=== PATIENT | male | born 1970 | race Caucasian/White ===

== ENCOUNTER 2017-07-12 13:27 | Emergency (ER) | payer MEDICAID ==
[2017-07-12] MEDS ORDERED: Lidocaine 5% Patch TD STA (17:02)
[2017-07-12] MEDS ORDERED: Lidocaine 5% Patch TD ONE (17:17)
--- NOTE | 2017-07-12 17:28 | C.PDOC ---
History Of Present Illness 46yo male, presents to ER with complaints of left lateral chest pain, PRESENT ONLY with change in position or deep inspiration. Patient states he HAS had the chest discomfort for 1 year but it worsened last night, prompting his ER visit. He took Tylenol with no relief of pain. he denies [place] fever, chills, shortness of breath, weakness, and offers no other medical complaints. NO PRIOR MD NATALIE FOR SAME PMD: None Time Seen by Provider: 07/12/17 15:51 Chief Complaint (Nursing): GI Problem History Per: Patient History/Exam Limitations: no limitations Onset/Duration Of Symptoms: Intermittent Episodes, Persistent Current Symptoms Are (Timing): Still Present Past Medical History Reviewed: Historical Data, Nursing Documentation, Vital Signs Vital Signs: Last Vital Signs Temp 98.4 F 07/12/17 14:11 Pulse 84 07/12/17 14:11 Resp 18 07/12/17 14:11 BP 105/69 07/12/17 14:11 Pulse Ox 95 07/12/17 18:14 - Medical History PMH: Arthritis, Asthma, Rheumatoid Arthritis Denies: Chronic Kidney Disease Surgical History: Appendectomy Family History: States: No Known Family Hx, Unknown Family Hx - Social History Hx Tobacco Use: Yes Hx Alcohol Use: No (DENIES) Hx Substance Use: No (DENIES) - Immunization History Hx Tetanus Toxoid Vaccination: Yes Hx Influenza Vaccination: No Hx Pneumococcal Vaccination: No Review Of Systems Except As Marked, All Systems Reviewed And Found Negative. Constitutional: Negative for: Fever, Chills Cardiovascular: Positive for: Chest Pain Respiratory: Negative for: Shortness of Breath Neurological: Negative for: Weakness Physical Exam - Physical Exam Appears: Non-toxic, No Acute Distress Skin: Normal Color, Warm, Dry Head: Atraumatic, Normacephalic Eye(s): bilateral: Normal Inspection Oral Mucosa: Moist Neck: Normal ROM, Supple Chest: Symmetrical, Tenderness (muscle spasm left lateral chest ) Cardiovascular: Rhythm Regular Respiratory: Normal Breath Sounds, No Wheezing Back: Normal Inspection Extremity: Normal ROM, No Deformity Neurological/Psych: Oriented x3 ED Course And Treatment O2 Sat by Pulse Oximetry: 95 (RA) Pulse Ox Interpretation: Normal Reevaluation Time: 18:13 Reassessment Condition: Improved (PT CO SPASM IN L FOREARM. EXAM: SOFT NONDISTENDED. PT BECAME BELLIGERENT AND VERBALLY ABUSIVE UPON BEING ADVISED WILL NOT BE RECEIVING NARCOTIC MEDICATION. DC) Medical Decision Making Medical Decision Making: Plan: -- Tylenol 650 mg PO -- Toradol 60mg IM -- Lidoderm patch -- Valium 5mg PO Disposition Counseled Patient/Family Regarding: Diagnosis, Need For Followup - Disposition Disposition: HOME/ ROUTINE Disposition Time: 18:14 Condition: IMPROVED Instructions: Chronic Pain Forms: [employer] ([place]) - Clinical Impression Clinical Impression: Chronic pain, Drug-seeking behavior - Scribe Statement The provider has reviewed the documentation as recorded by the Scribe (Yamile Salvador) Provider Attestation: All medical record entries made by the Scribe were at my direction and personally dictated by me. I have reviewed the chart and agree that the record accurately reflects my personal performance of the history, physical exam, medical decision making, and the department course for this patient. I have also personally directed, reviewed, and agree with the discharge instructions and disposition.
[2017-07-12 18:54] VITALS: BP 155/86; PULSE 78; RESP 20; TEMP 97; O2SAT 98
== END 2017-07-12 18:00 | disposition home or self-care (01) ==
LOC: C.ER 13:27
DX: G89.29 Other chronic pain (principal); Z76.5 Malingerer [conscious simulation]; Z72.0 Tobacco use; M06.9 Rheumatoid arthritis, unspecified
CPT/HCPCS: 96372; 99283; J1885

== ENCOUNTER 2018-05-02 17:15 | Inpatient (IN) | payer MEDICAID ==
[2018-05-02 17:55] LABS: BASO # 0.1 K/uL (0.0-0.2); BASO % 1.4 % (0.0-2.0); EOS % 0.4 % (0.0-4.0); HEMOGLOBIN 13.6 g/dL (12.0-18.0); LYMPH # 1.8 K/uL (1.0-4.3); LYMPH % 21.2 % (20.0-40.0); MEAN CELL VOLUME 91.3 fL (80.0-94.0); MEAN CORPUSCULAR HEMOGLOBIN 29.5 pg (27.0-31.0); MEAN CORPUSCULAR HGB CONC 32.3 g/dL (33.0-37.0); MEAN PLATELET VOLUME 8.5 fL (7.2-11.7); MONO # 0.4 K/uL (0.0-0.8); MONO % 4.9 % (0.0-10.0); NEUT # 6.1 K/uL (1.8-7.0); NEUT % 72.1 % (50.0-75.0); NRBC % 0.1 % (0.0-2.0); RBC 4.62 Mil/uL (4.40-5.90); RED CELL DISTRIBUTION WIDTH 14.6 % (11.5-14.5); WHITE BLOOD COUNT 8.5 K/uL (4.8-10.8)
--- NOTE | 2018-05-02 18:06 | C.PDOC ---
History Of Present Illness 47 y/o male presents to the ED, referred by PMD Mateus Dorman for evaluation. Patient complains of worsening SOB for 1 week. He also reports having QUINTANA for 4 months, ever since I reached 300 lbs. Patient has hx of asthma, and reports no improvement with nebulizer treatments at home. He also complains of a subjective fever. Patient has h/o intermittent chest pain for 1 year, with previous ED eval in 2018. Of note patient is a poor historian. PMD DR DORMAN <Rosita Keyes - Last Filed: 05/02/18 18:51> History Per: Patient History/Exam Limitations: no limitations Onset/Duration Of Symptoms: Days Current Symptoms Are (Timing): Still Present <Rosita Keyes - Last Filed: 05/02/18 18:51> <Mery Elmore - Last Filed: 05/02/18 20:16> Time Seen by Provider: 05/02/18 17:42 Chief Complaint (Nursing): Shortness Of Breath Past Medical History Reviewed: Historical Data, Nursing Documentation, Vital Signs Vital Signs: Last Vital Signs Temp Pulse 101 H 05/02/18 17:30 Resp 21 05/02/18 17:30 BP 114/71 05/02/18 17:30 Pulse Ox 99 05/02/18 17:30 - Medical History PMH: Arthritis, Asthma, Rheumatoid Arthritis Denies: Chronic Kidney Disease Surgical History: Appendectomy Family History: States: Unknown Family Hx - Social History Hx Tobacco Use: Yes Hx Alcohol Use: No (DENIES) Hx Substance Use: No (DENIES) - Immunization History Hx Tetanus Toxoid Vaccination: Yes Hx Influenza Vaccination: No Hx Pneumococcal Vaccination: No <Rosita Keyes - Last Filed: 05/02/18 18:51> Vital Signs: Last Vital Signs Temp 98.0 F 05/02/18 19:10 Pulse 94 H 05/02/18 19:10 Resp 22 05/02/18 19:10 BP 106/50 L 05/02/18 19:10 Pulse Ox 100 05/02/18 19:10 <Mery Elmore - Last Filed: 05/02/18 20:16> Review Of Systems Except As Marked, All Systems Reviewed And Found Negative. Constitutional: Positive for: Fever (subjective). Negative for: Sweats Eyes: Negative for: Vision Change Cardiovascular: Positive for: Chest Pain (intermittent). Negative for: Palpitations Respiratory: Positive for: Shortness of Breath, SOB with Excertion Gastrointestinal: Negative for: Nausea, Vomiting, Diarrhea Musculoskeletal: Negative for: Back Pain Skin: Negative for: Rash Neurological: Negative for: Weakness, Numbness, Dizziness <Rosita Keyes Last Filed: 05/02/18 18:51> Physical Exam - Physical Exam Appears: Non-toxic, In Acute Distress (mild distress), Other (Obese male) Skin: Warm, Dry, No Diaphoretic Head: Atraumatic, Normacephalic Eye(s): bilateral: Normal Inspection, PERRL, EOMI Nose: Normal Oral Mucosa: Moist Neck: Normal ROM Chest: Symmetrical Cardiovascular: Rhythm Regular, No Murmur Respiratory: Wheezing (expiratory), Other (+retractions, speaking in full sentences) Gastrointestinal/Abdominal: Soft (but obese), No Tenderness, No Guarding Extremity: Normal ROM, No Pedal Edema, No Calf Tenderness Pulses: Left Radial: Normal, Right Radial: Normal Neurological/Psych: Oriented x3, Normal Speech, Normal Cranial Nerves <Rosita Keyes Last Filed: 05/02/18 18:51> ED Course And Treatment - Laboratory Results Result Diagrams: 05/02/18 17:41 05/02/18 17:41 O2 Sat by Pulse Oximetry: 99 (RA) Pulse Ox Interpretation: Normal <Rosita Keyes Last Filed: 05/02/18 18:51> - Laboratory Results Result Diagrams: 05/02/18 17:41 05/02/18 17:41 Lab Results: PT 11.9 SECONDS (9.7-12.2) 05/02/18 19:23 INR 1.1 05/02/18 19:23 APTT 33 SECONDS (21-34) 05/02/18 19:23 Troponin I < 0.0120 ng/mL (0.00-0.120) 05/02/18 18:37 NT-Pro-B Natriuret Pep 23.6 pg/mL (0-450) 05/02/18 18:37 Total Bilirubin 0.5 mg/dL (0.2-1.3) 05/02/18 17:41 AST 38 U/L (17-59) 05/02/18 17:41 ALT 29 U/L (21-72) 05/02/18 17:41 Alkaline Phosphatase 122 U/L (38-126) 05/02/18 17:41 Total Protein 7.9 g/dL (6.3-8.3) 05/02/18 17:41 Albumin 4.1 g/dL (3.5-5.0) 05/02/18 17:41 Globulin 3.8 gm/dL (2.2-3.9) 05/02/18 17:41 Albumin/Globulin Ratio 1.1 (1.0-2.1) 05/02/18 17:41 <Mery Elmore - Last Filed: 05/02/18 20:16> Progress - Re-Evaluation Re-evaluation Note: 05/02/18 18:14 D/W DR DORMAN SAW PT FOR FIRST TIME TODAY. SOB, DECOMPENSATED WHILE IN OFFICE. +TACHY, O2 SAT LOW 90S. T 100.2 NEG STREP AND FLU. HO HEROIN ABUSE NOW ON METHADONE. D/W DR PUCKETT WHO WILL CONSULT. 05/02/18 18:53 D/W DR PUCKETT AWARE OF ER FINDINGS WILL CONSULT - Data Reviewed Data Reviewed: Lab, Diagnostic imaging, EKG, Old records <Rosita Keyes - Last Filed: 05/02/18 18:51> Medical Decision Making Medical Decision Making: Impression: SOB, QUINTANA Plan: Patient assessed and examined. Orders placed in for blood work, cardiac enzymes, EKG, and CXR. Administered 80 mg IV solu-medrol and albuterol neb x1. <WaliRosita - Last Filed: 05/02/18 18:51> Disposition Counseled Patient/Family Regarding: Diagnosis - Disposition Disposition Time: 19:00 <WaliRosita - Last Filed: 05/02/18 18:51> Counseled Patient/Family Regarding: Studies Performed, Diagnosis - Disposition Disposition Time: 20:00 <Mery Elmore - Last Filed: 05/02/18 20:16> - Disposition Disposition: HOSPITALIZED Condition: STABLE Forms: [facility] ([place]) - Clinical Impression Clinical Impression: Dyspnea, Chronic left hip pain, Narcotic dependence, Hyperglycemia - Scribe Statement The provider has reviewed the documentation as recorded by the Maria C Escamilla Provider Attestation: All medical record entries made by the Treveribjulio césar were at my direction and person ally dictated by me. I have reviewed the chart and agree that the record accurately reflects my personal performance of the history, physical exam, medical decision making, and the department course for this patient. I have also personally directed, reviewed, and agree with the discharge instructions and disposition. <Rosita Keyes - Last Filed: 05/02/18 18:51> Physician Patient Turnover Patient Signed Over To: Mery Elmore Handoff Comments: FU LABS, DISPO <Rosita Keyes - Last Filed: 05/02/18 18:51> Addendum Addendum: 05/02/18 19:31 On reassessment, patient reports no significant improvement after nebulizer and treatment. On examination breath sounds decreased. 05/02/18 20:00 Trop and BNP wnl. Results d/w patient. Plan admit for further evaluation and management. Pt agreeable w/POC. Case d/w Dr. Wong, hospitalist, who accepts patient to his service. <Mery Elmore - Last Filed: 05/02/18 20:16>
[2018-05-02] MEDS ORDERED: Albuterol 0.083% Inhal Sol (2.5 mg/3 mL) UD INH STA (18:08)
[2018-05-02 18:14] LABS: ALB/GLOB RATIO 1.1 (1.0-2.1); ALBUMIN 4.1 g/dL (3.5-5.0); ALT/SGPT 29 U/L (21-72); AST/SGOT 38 U/L (17-59); BLOOD UREA NITROGEN 16 mg/dL (9-20); CALCIUM 8.8 mg/dl (8.6-10.4); GFR NON-AFRICAN AMERICAN > 60
[2018-05-02] MEDS ORDERED: MethylPREDNISolone 40 mg Vial ONE (18:48)
--- NOTE | 2018-05-02 18:54 | RAD ---
HISTORY: SOB COMPARISON: Chest x-ray performed 06/30/15 TECHNIQUE: Chest, one view. FINDINGS: Examination limited by habitus and marked hypoinflation. LUNGS: Pulmonary venous congestion versus vascular crowding due to hypoinflation. Central vascular prominence. Please note that chest x-ray has limited sensitivity for the detection of pulmonary masses. PLEURA: No significant pleural effusion identified. No definite pneumothorax . CARDIOVASCULAR: Heart size appears top normal. Faint atherosclerotic calcifications of the aorta. OSSEOUS STRUCTURES: No acute osseous abnormality identified. VISUALIZED UPPER ABDOMEN: Unremarkable. OTHER FINDINGS: None. IMPRESSION: Pulmonary venous congestion versus vascular crowding due to hypoinflation. Central vascular prominence.
[2018-05-02] MEDS ORDERED: Albuterol 0.083% Inhal Sol (2.5 mg/3 mL) UD ONE (18:57)
[2018-05-02] MEDS ORDERED: Azithromycin 500 MG in Sodium Chloride 0.9% 250 ML IV STA (19:00)
[2018-05-02 19:14] LABS: B-TYPE NATRIURETIC PEPTIDE 23.6 pg/mL (0-450)
[2018-05-02 19:40] LABS: INR 1.1; PROTHROMBIN TIME 11.9 SECONDS (9.7-12.2)
--- NOTE | 2018-05-02 19:47 | CP.PCM.CON ---
History of Present Illness - History of Present Illness History of Present Illness: I was asked to evaluate patient dia Dorman and Dr Dave Patient seen 05/02/181849 Patient is a 47 year old morbidly obese male whio presents with dsypnea. he went to see his PMD and exam ws noable for udible wheezing, He has intermittent dyspnea. Review of Systems - Constitutional Constitutional: absent: As Per HPI, Anorexia, Chills, Daytime Sleepiness, Exces sive Sweating, Fatigue, Fever, Frequent Falls, Headache, Increased Appetite, Lethargy, Malaise, Night Sweats, Snoring, Sleep Apnea, Weight Gain, Weight Loss, Weakness, Other - EENT Eyes: absent: As Per HPI, Blind Spots, Blurred Vision, Change in Vision, Decreas ed Night Vision, Diplopia, Discharge, Dry Eye, Exophthalmos, Floaters, Irritation, Itchy Eyes, Loss of Peripheral Vision, Pain, Photophobia, Requires Corrective Lenses, Sees Flashes, Spots in Vision, Tunnel Vision, Other Visual Disturbances, Loss of Vision, Other Ears: absent: As Per HPI, Decreased Hearing, Ear Discharge, Ear Pain, Tinnitus, Abnormal Hearing, Disequilibrium, Dizziness, Other Nose/Mouth/Throat: absent: As Per HPI, Epistaxis, Nasal Congestion, Nasal Discharge, Nasal Obstruction, Nasal Trauma, Nose Pain, Post Nasal Drip, Sinus Pain, Sinus Pressure, Bleeding Gums, Change in Voice, Dental Pain, Dry Mouth, Dysphagia, Halitosis, Hoarsness, Lip Swelling, Mouth Lesions, Mouth Pain, Odynophagia, Sore Throat, Throat Swelling, Tongue Swelling, Facial Pain, Neck Pain, Neck Mass, Other - Cardiovascular Cardiovascular: Dyspnea, Orthopnea - Respiratory Respiratory: Dyspnea - Gastrointestinal Gastrointestinal: absent: As Per HPI, Abdominal Pain, Belching, Bloating, Change in Bowel Habits, Change in Stool Character, Coffee Ground Emesis, Constipation, Cramping, Diarrhea, Dyspepsia, Dysphagia, Early Satiety, Excessive Flatus, Fecal Incontinence, Heartburn, Hematemesis, Hematochezia, Loose Stools, Melena, Nausea, Odynophagia, Temesmus, Vomiting, Other - Genitourinary Genitourinary: absent: As Per HPI, Change in Urinary Stream, Difficulty Urinating, Dysuria, Flank Pain, Hematuria, Pyuria, Nocturia, Urinary Incontinence, Urinary Frequency, Urinary Hesitance, Urinary Urgency, Voiding Freq/Small Amts, Freq UTI, Hx Renal/Bladder Calculi, Hx /Renal Surgery, Bladder Distension, Other - Musculoskeletal Musculoskeletal: Joint Swelling - Integumentary Integumentary: absent: As Per HPI, Acne, Alopecia, Bleeding Lesions, Change in Hair, Change in Nails, Change in Pigmentation, Changing Lesions, Dry Skin, Erythema, Furuncle, Hirsutism, Lesions, New Lesions, Non-Healing Lesions, Photosensitivity, Pruritus, Rash, Skin Pain, Skin Ulcer, Sores, Striae, Swelling, Unusual Bruising, Wounds, Jaundice, Other - Neurological Neurological: absent: As Per HPI, Abnormal Gait, Abnormal Hearing, Abnormal Movements, Abnormal Speech, Behavioral Changes, Burning Sensations, Confusion, Convulsions, Disequilibrium, Dizziness, Numbness, Focal Weakness, Frequent Falls, Headaches, Lack of Coordination, Loss of Vision, Memory Loss, Paresthesias, Radicular Pain, Restless Legs, Sensory Deficit, Syncope, Tingling, Tremor, Vertigo, Weakness, Other Visual Disturbances, Other - Psychiatric Psychiatric: absent: As Per HPI, Abnormal Sleep Pattern, Anhedonia, Anxiety, Auditory Hallucinations, Behavioral Changes, Change in Appetite, Change in Libido, Confusion, Depression, Difficulty Concentrating, Hallucinations, Homicidal Ideation, Hopelessness, Irritability, Memory Loss, Mood Swings, Panic Attacks, Paranoia, Suicidal Ideation, Visual Hallucinations, Tactile Hallucinations, Other - Endocrine Endocrine: absent: As Per HPI, Change in Body Appearance, Change in Libido, Cold Intolorance, Deepening of Voice, Excessive Sweating, Fatigue, Flushing, Heat Intolorance, Increase in Ring/Shoe/Hat Size, Palpitations, Polydipsia, Polyphagia, Polyuria, Other - Hematologic/Lymphatic Hematologic: absent: As Per HPI, Easy Bleeding, Easy Bruising, Lymphadenopathy, Other Past Patient History - Infectious Disease Hx of Infectious Diseases: None - Past Medical History & Family History Past Medical History?: Yes - Past Social History Smoking Status: Heavy Smoker > 10 Cigarettes Daily - CARDIAC Hx Cardiac Disorders: No - PULMONARY Hx Asthma: Yes - NEUROLOGICAL Hx Neurological Disorder: No - HEENT Hx HEENT Problems: No - RENAL Hx Chronic Kidney Disease: No - ENDOCRINE/METABOLIC Hx Endocrine Disorders: No - HEMATOLOGICAL/ONCOLOGICAL Hx Blood Disorders: No Hx Blood Transfusions: No - INTEGUMENTARY Hx Dermatological Problems: No Other/Comment: MULTIPLE TATTOOS BILAT UPPER EXTREMITIES - MUSCULOSKELETAL/RHEUMATOLOGICAL Hx Arthritis: Yes Hx Rheumatoid Arthritis: Yes - GASTROINTESTINAL Hx Gastrointestinal Disorders: No - GENITOURINARY/GYNECOLOGICAL Hx Genitourinary Disorders: No - PSYCHIATRIC Hx Substance Use: No (DENIES) - SURGICAL HISTORY Hx Appendectomy: Yes - ANESTHESIA Hx Anesthesia: Yes Hx Anesthesia Reactions: No Hx Malignant Hyperthermia: No Meds Allergies/Adverse Reactions: Allergies Allergy/AdvReac Type Severity Reaction Status Date / Time seafood Allergy Uncoded 05/02/18 17:52 - Medications Medications: Current Medications Azithromycin 500 mg/ Sodium (Chloride) 250 mls @ 250 mls/hr IV STAT STA; Protocol Stop: 05/02/18 19:59 Ceftriaxone Sodium 1 gm/ (Sodium Chloride) 100 mls @ 100 mls/hr IVPB STAT STA; Protocol Stop: 05/02/18 19:59 Physical Exam - Constitutional Appears: Non-toxic - Head Exam Head Exam: NORMAL INSPECTION - Eye Exam Eye Exam: Normal appearance - ENT Exam ENT Exam: Mucous Membranes Moist - Neck Exam Neck exam: Positive for: Full Rom, Normal Inspection - Respiratory Exam Respiratory Exam: Decreased Breath Sounds, Wheezes - Cardiovascular Exam Cardiovascular Exam: REGULAR RHYTHM - GI/Abdominal Exam GI & Abdominal Exam: Normal Bowel Sounds - Rectal Exam Rectal Exam: Deferred - Extremities Exam Extremities exam: Positive for: pedal edema - Back Exam Back exam: NORMAL INSPECTION - Neurological Exam Neurological exam: Alert, Oriented x3 - Psychiatric Exam Psychiatric exam: Normal Affect - Skin Skin Exam: Normal Color Results - Vital Signs Recent Vital Signs: Last Vital Signs Temp 98.0 F 05/02/18 19:10 Pulse 94 H 05/02/18 19:10 Resp 22 05/02/18 19:10 BP 106/50 L 05/02/18 19:10 Pulse Ox 100 05/02/18 19:10 - Labs Result Diagrams: 05/02/18 17:41 05/02/18 17:41 Labs: Laboratory Results - last 24 hr 05/02/18 05/02/18 05/02/18 17:41 17:41 17:42 WBC 8.5 RBC 4.62 Hgb 13.6 D Hct 42.2 MCV 91.3 D MCH 29.5 MCHC 32.3 L RDW 14.6 H Plt Count 341 MPV 8.5 Neut % (Auto) 72.1 Lymph % (Auto) 21.2 Turner % (Auto) 4.9 Eos % (Auto) 0.4 Baso % (Auto) 1.4 Neut # (Auto) 6.1 Lymph # (Auto) 1.8 Turner # (Auto) 0.4 Eos # (Auto) 0.0 Baso # (Auto) 0.1 PT INR APTT Sodium 132 Potassium 4.4 Chloride 93 L Carbon Dioxide 29 Anion Gap 14 BUN 16 Creatinine 0.9 Est GFR ( Amer) > 60 Est GFR (Non-Af Amer) > 60 POC Glucose (mg/dL) 284 H Random Glucose 315 H D Calcium 8.8 Total Bilirubin 0.5 AST 38 ALT 29 Alkaline Phosphatase 122 Troponin I NT-Pro-B Natriuret Pep Total Protein 7.9 Albumin 4.1 Globulin 3.8 Albumin/Globulin Ratio 1.1 05/02/18 05/02/18 18:37 19:23 WBC RBC Hgb Hct MCV MCH MCHC RDW Plt Count MPV Neut % (Auto) Lymph % (Auto) Turner % (Auto) Eos % (Auto) Baso % (Auto) Neut # (Auto) Lymph # (Auto) Turner # (Auto) Eos # (Auto) Baso # (Auto) PT 11.9 INR 1.1 APTT 33 Sodium Potassium Chloride Carbon Dioxide Anion Gap BUN Creatinine Est GFR ( Amer) Est GFR (Non-Af Amer) POC Glucose (mg/dL) Random Glucose Calcium Total Bilirubin AST ALT Alkaline Phosphatase Troponin I < 0.0120 NT-Pro-B Natriuret Pep 23.6 Total Protein Albumin Globulin Albumin/Globulin Ratio - EKG Data EKG Interpreted by: Myself Assessment & Plan (1) Dyspnea Assessment and Plan: has audible wheezing. recommend continued bronchodilator therapy check echo to assess LV function Status: Acute (2) HTN (hypertension) Assessment and Plan: will monitor blood pressure Status: Acute
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
[2018-05-02] MEDS ORDERED: Glucagon Recombinant 1 mg Inj IM PRN (21:34)
[2018-05-02] MEDS ORDERED: Dextrose 50% SYRINGE Inj (50 ml) IV PRN (21:34)
[2018-05-02] MEDS ORDERED: Albuterol HFA 90 mcg/actuation (8 g) IH PRN (21:55)
[2018-05-02] MEDS: (Novolog) Insulin Aspart, Recombinant 100 u/ml 10 ml vial SC SCH (22:54)
[2018-05-03 03:30] LABS: SQUAMOUS EPITHIAL 1 /hpf (0-5); URINE BILIRUBIN NEGATIVE (NEGATIVE); URINE BLOOD NEGATIVE (NEGATIVE); URINE CLARITY Clear (Clear); URINE COLOR Yellow (YELLOW); URINE GLUCOSE (UA) 3+ mg/dL (Normal); URINE LEUKOCYTE ESTERASE NEG Leu/uL (Negative); URINE PROTEIN NEGATIVE (NEGATIVE); URINE UROBILINOGEN NORMAL mg/dL (0.2-1.0)
[2018-05-03 03:46] LABS: CK-MB 0.76 ng/mL (0.0-3.38)
[2018-05-03] MEDS: (Novolog) Insulin Aspart, Recombinant 100 u/ml 10 ml vial SC SCH ×4 (06:30→20:59)
[2018-05-03] MEDS: Albuterol 0.083% Inhal Sol (2.5 mg/3 mL) UD IH PRN (07:30)
[2018-05-03 08:24] LABS: BASO % 0.2 % (0.0-2.0); HEMOGLOBIN 12.6 g/dL (12.0-18.0); LYMPH # 0.9 K/uL (1.0-4.3); LYMPH % 11.2 % (20.0-40.0); MEAN CELL VOLUME 91.8 fL (80.0-94.0); MEAN CORPUSCULAR HEMOGLOBIN 30.3 pg (27.0-31.0); MEAN PLATELET VOLUME 8.9 fL (7.2-11.7); MONO # 0.2 K/uL (0.0-0.8); MONO % 2.7 % (0.0-10.0); NEUT # 7.1 K/uL (1.8-7.0); NEUT % 85.9 % (50.0-75.0); RBC 4.18 Mil/uL (4.40-5.90); RED CELL DISTRIBUTION WIDTH 14.1 % (11.5-14.5); WHITE BLOOD COUNT 8.3 K/uL (4.8-10.8)
[2018-05-03 08:40] LABS: ALB/GLOB RATIO 1.2 (1.0-2.1); ALT/SGPT 22 U/L (21-72); AST/SGOT 31 U/L (17-59); BLOOD UREA NITROGEN 17 mg/dL (9-20); CALCIUM 8.9 mg/dl (8.6-10.4); GFR NON-AFRICAN AMERICAN > 60
[2018-05-03 08:46] LABS: CK-MB 0.68 ng/mL (0.0-3.38); TROPONIN I 0.017 ng/mL (0.00-0.120)
--- NOTE | 2018-05-03 08:55 | CP.PCM.PN ---
Subjective - Date & Time of Evaluation Date of Evaluation: 05/03/18 Time of Evaluation: 09:00 - Subjective Subjective: Medicine progress not for Dr. Pace Pt seen and examined at bedside. Pt is resting comfortably. Reports his sob has been going on for 6 months, ever since he crossed the 250/300 lb barrier. Denies any acute complaints at this time. Denies fever, chills, chest pain, palpitations, abdominal pain, nausea, vomiting, diarrhea, hematochezia, leg pain. Objective - Vital Signs/Intake and Output Vital Signs (last 24 hours): Temp Pulse Resp BP Pulse Ox 97.9 F 80 20 125/77 98 05/03/18 07:00 05/03/18 07:00 05/03/18 07:00 05/03/18 07:00 05/03/18 07:00 Intake and Output: 05/03/18 05/03/18 06:59 18:59 Intake Total 440 Balance 440 - Medications Medications: Current Medications Albuterol (Ventolin Hfa 90 Mcg/Actuation (8 G)) 1 puff IH RQ4 PRN PRN Reason: Wheezing Albuterol Sulfate (Albuterol 0.083% Inhal Rachael (2.5 Mg/3 Ml) Ud) 2.5 mg IH RQ6 PRN PRN Reason: Shortness of Breath Dextrose (Dextrose 50% Inj) 0 ml IV STAT PRN; Protocol PRN Reason: Hypoglycemia Protocol Dextrose (Glutose 15) 0 gm PO ONCE PRN; Protocol PRN Reason: Hypoglycemia Protocol Enoxaparin Sodium (Lovenox) 40 mg SC DAILY MAHESH Glucagon (Glucagen Diagnostic Kit) 0 mg IM STAT PRN; Protocol PRN Reason: Hypoglycemia Protocol Dextrose (Dextrose 5% In Water 1000 Ml) 1,000 mls @ 0 mls/hr IV .Q0M PRN; Protocol PRN Reason: Hypoglycemia Protocol Insulin Aspart (Novolog) 0 unit SC ACHS MAHESH; Protocol Last Admin: 05/03/18 06:30 Dose: 6 unit - Labs Labs: 05/03/18 08:10 05/03/18 08:10 PT 11.9 SECONDS (9.7-12.2) 05/02/18 19:23 INR 1.1 05/02/18 19:23 APTT 33 SECONDS (21-34) 05/02/18 19:23 - Constitutional Appears: Non-toxic, No Acute Distress - Head Exam Head Exam: ATRAUMATIC, NORMAL INSPECTION - Eye Exam Eye Exam: EOMI, Normal appearance - ENT Exam ENT Exam: Mucous Membranes Moist - Respiratory Exam Respiratory Exam: Clear to Ausculation Bilateral. absent: Decreased Breath Sounds, Rales, Rhonchi, Wheezes, Respiratory Distress, Stridor - Cardiovascular Exam Cardiovascular Exam: REGULAR RHYTHM, +S1, +S2. absent: Tachycardia - GI/Abdominal Exam GI & Abdominal Exam: Soft (morbidly obese), Tenderness (mild diffuse tenderness), Normal Bowel Sounds. absent: Firm, Guarding, Rigid, Rebound - Extremities Exam Extremities Exam: Normal Capillary Refill, Pedal Edema (1+ pitting edema bilaterally, left worse than right). absent: Calf Tenderness Additional comments: (+) 2+ pulses in bilateral upper and lower distal extremities - Back Exam Back Exam: NORMAL INSPECTION - Neurological Exam Neurological Exam: Alert, Awake - Psychiatric Exam Psychiatric exam: Normal Affect, Normal Mood - Skin Skin Exam: Dry, Normal Color, Warm Assessment and Plan - Assessment and Plan (Free Text) Assessment: 47 year old male with PMH of asthma, morbid obesity, sleep apnea, opioid use who was sent in to the ED after first visit with PMD for dyspnea and uncontrolled blood sugars. Plan: Dyspnea Asthma exacerbation Albuterol nebulizer q6 prn sob Ventolin q4 prn wheezing Cardiology, Dr. Carr, consulted. Continue beta agonist. Echocardiogram 05/03 shows no regional wall motion abnormalities. LVEF>65% BNP 23 on admission Troponin x3 is negative, EKG is NSR, no acute STTW changes. CXR showed pulmonary venous congestion versus vascular crowding due to hypoinflation. Central vascular prominence. Will consider Lasix in the future, but not currently recommended by cardiology F/u Lipid panel in am F/u blood culture New onset DM2 Pt with family history of DM2 HgbA1c is 11.3 ISS high Will adjust insulin dosage tomorrow to incorporate long acting and mealtime insulin coverage Hypoglycemia protocol Accuchecks ACHS [facility] referral [facility] CPAP at night PT eval requested with ambulatory pulse oximetry Lower extremity edema Venous doppler of bilateral lower extremities is negative for abnormality bilaterally Dysuria UA clean, denies discharge Continue to monitor, may be due to diabetes SW consulted to help arrange CPAP machine for home on discharge F/u urine culture Hx of opioid use, goes to methadone clinic [facility]( [phone]) 73 mg daily dose was confirmed Pt will receive 75 mg PO today, and start once daily tomorrow morning Our pharmacy only has 10 and 5 tablets, rounded up to 75 PPx No indication for GI ppx at this time VTE: Lovenox 40 sc PT/OT eval Will follow up with [facility] for discharge planning
[2018-05-03] MEDS: Enoxaparin 40 mg Syringe SC SCH (11:00)
--- NOTE | 2018-05-03 12:34 | CARD ---
APPROVED REPORT Date of service: 05/02/2018 EKG Measurement Heart [id number] <Conclusion> Sinus tachycardia Cannot rule out Anterior infarct, age undetermined Abnormal ECG
--- NOTE | 2018-05-03 13:24 | VASCLAB ---
Date of service: 05/03/2018 PROCEDURE: Lower Extremity Venous Duplex Exam. HISTORY: b/l lower extremity swelling PRIORS: None. TECHNIQUE: Bilateral common femoral, femoral, popliteal and posterior tibial, peroneal and great saphenous veins were evaluated. Flow was assessed with color Doppler, compressibility, assessment of phasic flow and augmentation response. Report prepared by Guillermo Morales, ALESSIA, RVT FINDINGS: RIGHT: 1. Common Femoral Vein: 1.1. Compressibility - Fully compressible: Thrombus - None : Flow - Phasic: Augmentation -Normal: Reflux - None. 2. Femoral Vein: 2.1. Compressibility - Fully compressible: Thrombus - None : Flow - Phasic: Augmentation -Normal: Reflux - None. 3. Popliteal Vein: 3.1. Compressibility - Fully compressible: Thrombus - None : Flow - Phasic: Augmentation -Normal: Reflux - None. 4. Posterior Tibial Vein: 4.1. Compressibility - Fully compressible: Thrombus - None: Flow - Phasic: Augmentation -Normal: Reflux - None. 5. Peroneal Vein: 5.1. Compressibility - : Thrombus - : Flow - : Augmentation -: Reflux - . 6. Great Saphenous Vein: 6.1. Compressibility - Fully compressible: Thrombus - None: Flow - Phasic: Augmentation - Normal: Reflux - None. LEFT: 1. Common Femoral Vein: 1.1. Compressibility - Fully compressible: Thrombus - None: Flow - Phasic: Augmentation -Normal: Reflux - None. 2. Femoral Vein: 2.1. Compressibility - Fully compressible: Thrombus - None: Flow - Phasic: Augmentation -Normal: Reflux - None. 3. Popliteal Vein: 3.1. Compressibility - Fully compressible: Thrombus - None : Flow - Phasic: Augmentation -Normal: Reflux - None. 4. Posterior Tibial Vein: 4.1. Compressibility - Fully compressible: Thrombus - None: Flow - Phasic: Augmentation -Normal: Reflux - None. 5. Peroneal Vein: 5.1. Compressibility - : Thrombus - : Flow - : Augmentation -: Reflux - . 6. Great Saphenous Vein: 6.1. Compressibility - Fully compressible: Thrombus - None: Flow - Phasic: Augmentation - Normal: Reflux - None. OTHER FINDINGS: Due to swelling in the calves, both peroneal veins are not visualized. IMPRESSION: Right: No evidence of deep or superficial vein thrombosis of the right lower extremity. Normal valve function noted of the right side. Left: No evidence of deep or superficial vein thrombosis of the left lower extremity. Normal valve function noted of the left side.
--- NOTE | 2018-05-03 14:12 | CARD ---
APPROVED REPORT Date of service: 05/03/2018 EXAM: Two-dimensional and M-mode echocardiogram with Doppler and color Doppler. INDICATION Dyspnea RISK FACTORS Hypertension Hyperlipidemia 2D DIMENSIONS IVSd0.9 (0.7-1.1cm)LVDd4.6 (3.9-5.9cm) PWd1.0 (0.7-1.1cm)LVDs3.0 (2.5-4.0cm) FS (%) 34.6 %LVEF (%)63.7 (>50%) M-Mode DIMENSIONS Left Atrium (MM)4.14 (2.5-4.0cm)IVSd0.90 (0.7-1.1cm) Aortic Root3.22 (2.2-3.7cm)LVDd5.37 (4.0-5.6cm) Aortic Cusp Exc.2.42 (1.5-2.0cm)PWd0.96 (0.7-1.1cm) FS (%) 36 %LVDs3.42 (2.0-3.8cm) LVEF (%)65 (>50%) Mitral Valve MV E Vqnxcxbl67.5cm/sMV A Scyjeslf30.2cm/sE/A ratio1.2 TDI Lateral E' Peak V11.88cm/sMedial E' Peak V11.55cm/sE/Lateral E'7.1 E/Medial E'7.3 LEFT VENTRICLE The left ventricle is normal size. There is normal left ventricular wall thickness. The left ventricular function is normal. The left ventricular ejection fraction is within the normal range. No regional wall motion abnormalities noted. The left ventricular diastolic function is normal. No left ventricle thrombus noted on this study. There is no ventricular septal defect visualized. There is no left ventricular aneurysm. There is no mass noted in the left ventricle. RIGHT VENTRICLE The right ventricle is normal size. There is normal right ventricular wall thickness. The right ventricular systolic function is normal. ATRIA The left atrium size is normal. The right atrium size is normal. The interatrial septum is intact with no evidence for an atrial septal defect. AORTIC VALVE The aortic valve is normal in structure and function. No aortic regurgitation is present. There is no aortic valvular stenosis. There is no aortic valvular vegetation. MITRAL VALVE The mitral valve is normal in structure and function. There is no evidence of mitral valve prolapse. There is no mitral valve stenosis. There is no mitral valve regurgitation noted. TRICUSPID VALVE The tricuspid valve is normal in structure and function. There is no tricuspid valve regurgitation noted. There is no tricuspid valve prolapse or vegetation. There is no tricuspid valve stenosis. PULMONIC VALVE The pulmonary valve is normal in structure and function. There is no pulmonic valvular regurgitation. There is no pulmonic valvular stenosis. GREAT VESSELS The aortic root is normal in size. The ascending aorta is normal in size. The pulmonary artery is normal. The IVC is normal in size and collapses >50% with inspiration. PERICARDIAL EFFUSION The pericardium appears normal. There is no pleural effusion. <Conclusion> The left ventricular function is normal. The left ventricular ejection fraction is within the normal range. No regional wall motion abnormalities noted.
--- NOTE | 2018-05-03 17:26 | CP.PCM.PN ---
Subjective - Date & Time of Evaluation Date of Evaluation: 05/03/18 Time of Evaluation: 17:25 - Subjective Subjective: echocardiogram reviewed LV function is normal No valvular abnormalities noted. outpatient stress test is recommended Objective - Vital Signs/Intake and Output Vital Signs (last 24 hours): Temp Pulse Resp BP Pulse Ox 97.4 F L 66 20 105/58 L 96 05/03/18 16:00 05/03/18 16:00 05/03/18 16:00 05/03/18 16:00 05/03/18 16:00 Intake and Output: 05/03/18 05/03/18 06:59 18:59 Intake Total 440 600 Balance 440 600 - Medications Medications: Current Medications Albuterol (Ventolin Hfa 90 Mcg/Actuation (8 G)) 1 puff IH RQ4 PRN PRN Reason: Wheezing Albuterol Sulfate (Albuterol 0.083% Inhal Rachael (2.5 Mg/3 Ml) Ud) 2.5 mg IH RQ6 PRN PRN Reason: Shortness of Breath Last Admin: 05/03/18 07:30 Dose: 2.5 mg Dextrose (Dextrose 50% Inj) 0 ml IV STAT PRN; Protocol PRN Reason: Hypoglycemia Protocol Dextrose (Glutose 15) 0 gm PO ONCE PRN; Protocol PRN Reason: Hypoglycemia Protocol Enoxaparin Sodium (Lovenox) 40 mg SC DAILY [facility] Last Admin: 05/03/18 11:00 Dose: 40 mg Glucagon (Glucagen Diagnostic Kit) 0 mg IM STAT PRN; Protocol PRN Reason: Hypoglycemia Protocol Dextrose (Dextrose 5% In Water 1000 Ml) 1,000 mls @ 0 mls/hr IV .Q0M PRN; Protocol PRN Reason: Hypoglycemia Protocol Insulin Aspart (Novolog) 0 unit SC [facility]; Protocol - Labs Labs: 05/03/18 08:10 05/03/18 08:10 PT 11.9 SECONDS (9.7-12.2) 05/02/18 19:23 INR 1.1 05/02/18 19:23 APTT 33 SECONDS (21-34) 05/02/18 19:23 Assessment and Plan (1) Dyspnea Status: Acute (2) HTN (hypertension) Status: Acute
--- NOTE | 2018-05-03 19:24 | CARD ---
APPROVED REPORT Date of service: 05/03/2018 EKG Measurement Heart [id number] <Conclusion> Normal sinus rhythm Normal ECG
--- NOTE | 2018-05-03 19:24 | CARD ---
APPROVED REPORT Date of service: 05/03/2018 EKG Measurement Heart [id number] <Conclusion> Normal sinus rhythm Normal ECG
[2018-05-04 07:22] LABS: HEMOGLOBIN 12.4 g/dL (12.0-18.0); LYMPH % 30.8 % (20.0-40.0); MEAN CELL VOLUME 92.5 fL (80.0-94.0); MEAN CORPUSCULAR HEMOGLOBIN 30.2 pg (27.0-31.0); MEAN CORPUSCULAR HGB CONC 32.7 g/dL (33.0-37.0); MONO % 7.5 % (0.0-10.0); NEUT % 60.5 % (50.0-75.0); RBC 4.12 Mil/uL (4.40-5.90); RED CELL DISTRIBUTION WIDTH 14.4 % (11.5-14.5); WHITE BLOOD COUNT 8.9 K/uL (4.8-10.8)
[2018-05-04 07:23] LABS: BASO % 0.4 % (0.0-2.0); EOS # 0.1 K/uL (0.0-0.7); EOS % 0.8 % (0.0-4.0); LYMPH # 2.7 K/uL (1.0-4.3); MONO # 0.7 K/uL (0.0-0.8); NEUT # 5.4 K/uL (1.8-7.0); NRBC % 0.1 % (0.0-2.0)
[2018-05-04] MEDS: Albuterol 0.083% Inhal Sol (2.5 mg/3 mL) UD IH PRN (07:30)
[2018-05-04 07:37] LABS: ALBUMIN 3.8 g/dL (3.5-5.0); ALT/SGPT 21 U/L (21-72); AST/SGOT 36 U/L (17-59); BLOOD UREA NITROGEN 23 mg/dL (9-20); CALCIUM 8.7 mg/dl (8.6-10.4); GFR NON-AFRICAN AMERICAN > 60; HDL CHOLESTEROL 38 mg/dL (30-70)
[2018-05-04 07:46] LABS: LDL CHOLESTEROL 95 mg/dL (0-129)
[2018-05-04] MEDS: (Novolog) Insulin Aspart, Recombinant 100 u/ml 10 ml vial SC SCH ×4 (08:25→21:23)
[2018-05-04] MEDS: Enoxaparin 40 mg Syringe SC SCH (09:10)
--- NOTE | 2018-05-04 11:37 | CP.PCM.PN ---
Subjective - Date & Time of Evaluation Date of Evaluation: 05/04/18 Time of Evaluation: 09:00 - Subjective Subjective: Medicine progress note for Dr. Dhillon Pt seen and examined at bedside. Pt is resting comfortably. Reports improvement of shortness of breath. Denies any acute complaints at this time. Denies fever, chills, chest pain, sob, palpitations, abdominal pain, nausea, vomiting, diarrhea, hematochezia, leg pain. Pt reports last bowel movement being 4 days ago. Objective - Vital Signs/Intake and Output Vital Signs (last 24 hours): Temp Pulse Resp BP Pulse Ox 98.3 F 66 20 160/69 H 96 05/04/18 07:00 05/04/18 09:44 05/04/18 07:00 05/04/18 07:00 05/04/18 07:00 Intake and Output: 05/04/18 05/04/18 06:59 18:59 Intake Total 540 Output Total 1000 Balance -460 - Medications Medications: Current Medications Albuterol/Ipratropium (Duoneb 3 Mg/0.5 Mg (3 Ml) Ud) 3 ml INH RQ6 [facility] Dextrose (Dextrose 50% Inj) 0 ml IV STAT PRN; Protocol PRN Reason: Hypoglycemia Protocol Dextrose (Glutose 15) 0 gm PO ONCE PRN; Protocol PRN Reason: Hypoglycemia Protocol Enoxaparin Sodium (Lovenox) 40 mg SC DAILY [facility] Last Admin: 05/04/18 09:10 Dose: 40 mg Glucagon (Glucagen Diagnostic Kit) 0 mg IM STAT PRN; Protocol PRN Reason: Hypoglycemia Protocol Dextrose (Dextrose 5% In Water 1000 Ml) 1,000 mls @ 0 mls/hr IV .Q0M PRN; Protocol PRN Reason: Hypoglycemia Protocol Insulin Aspart (Novolog) 0 unit SC ACHS [facility]; Protocol Last Admin: 05/04/18 08:25 Dose: 4 units Methadone HCl (Methadone) 70 mg PO DAILY [facility] Last Admin: 05/04/18 10:33 Dose: 70 mg Methadone HCl (Methadone) 5 mg PO DAILY [facility] Last Admin: 05/04/18 09:44 Dose: 5 mg - Labs Labs: 05/04/18 07:14 05/04/18 07:14 PT 11.9 SECONDS (9.7-12.2) 05/02/18 19:23 INR 1.1 05/02/18 19:23 APTT 33 SECONDS (21-34) 05/02/18 19:23 - Additional Findings Additional findings: - Constitutional Appears: Non-toxic, No Acute Distress. Morbidly obese. - Head Exam Head Exam: ATRAUMATIC, NORMAL INSPECTION - Eye Exam Eye Exam: EOMI, Normal appearance - ENT Exam ENT Exam: Mucous Membranes Moist - Respiratory Exam Respiratory Exam: End expiratory wheezes. absent: Rales, Rhonchi, Respiratory Distress, Stridor - Cardiovascular Exam Cardiovascular Exam: REGULAR RHYTHM, +S1, +S2. absent: Tachycardia - GI/Abdominal Exam GI & Abdominal Exam: Soft (morbidly obese), Tenderness (mild diffuse tenderness), Normal Bowel Sounds. absent: Firm, Guarding, Rigid, Rebound - Extremities Exam Extremities Exam: Normal Capillary Refill, Pedal Edema (1+ pitting edema bilaterally, left worse than right). absent: Calf Tenderness Additional comments: (+) 2+ pulses in bilateral upper and lower distal extremities - Back Exam Back Exam: NORMAL INSPECTION - Neurological Exam Neurological Exam: Alert, Awake - Psychiatric Exam Psychiatric exam: Normal Affect, Normal Mood - Skin Skin Exam: Dry, Normal Color, Warm Assessment and Plan - Assessment and Plan (Free Text) Assessment: 47 year old male with PMH of asthma, morbid obesity, sleep apnea, opioid use who was sent in to the ED after first visit with PMD for dyspnea and uncontrolled blood sugars. Plan: Dyspnea Asthma exacerbation Duoneb q6h Breo Ellipta daily Cardiology, Dr. Carr, consulted. Continue beta agonist. Echocardiogram 05/03 shows no regional wall motion abnormalities. LVEF>65% BNP 23 on admission Troponin x3 is negative, EKG is NSR, no acute STTW changes. CXR showed pulmonary venous congestion versus vascular crowding due to hypoinflation. Central vascular prominence. Will consider Lasix in the future, but not currently recommended by cardiology Blood culture x2 shows no growth for 24 hours Total IgE level pending New onset DM2 Pt with family history of DM2 HgbA1c is 11.3 RISS high Will adjust insulin dosage tomorrow to incorporate long acting and mealtime insulin coverage Hypoglycemia protocol Accuchecks [facility] Telephoner referral TG/CHL/LDL/HDL is 113/142/95/38 ASCVD is 1.8%, no indication for statin, ASA May consider low dose MICHEAL inhibitor for renal protection. Blood sugar has been poorly controlled, will start Lantus 10 units SC at bedtime starting tonight RIAZ Continue CPAP at night Pulse ox is 95 percent post walk, but he requires frequent stops. Pulmonolgy, Dr. Asher, consulted. Recommendations appreciated. ABG with lactate shows normal lactate. Normal A-a gradient. Chronic respiratory acidosis with metabolic compensation. pH is 7.32, pO2 is 59 but pt in no respiratory distress and shows no signs of CO2 narcosis or respiratory distress. Lower extremity edema Venous doppler of bilateral lower extremities is negative for abnormality bilaterally Constipation Pt reports bowel movements once every few days Prune juice will be given Miralax once daily Sennakot once daily Monitor for BMs Dysuria UA clean, denies discharge Continue to monitor, may be due to diabetes Urine culture shows no growth Hx of opioid use, goes to methadone clinic [facility]( [phone]) 73 mg daily dose was confirmed Pt will receive 75 mg PO today, and start once daily tomorrow morning Our pharmacy only has 10 and 5 tablets, rounded up to 75 PPx No indication for GI ppx at this time VTE: Lovenox 40 sc PT/OT eval Dispo: Pt is pending [facility] transfer, already has authorization. Pt has appointment at methadone clinic on Tuesday, 05/08. He will remain here until transfer to [facility] on tuesday after methadone dose. Pending Pulmonology consult as well.
[2018-05-04] MEDS: POLYETHYLENE GLYCOL 3350 17 GM/Dose PACKET PO SCH (13:00)
[2018-05-04 13:36] LABS: ABG ALLEN TEST POS; ARTERIAL BLOOD GAS HCO3 28.5 mmol/L (21-28); ARTERIAL BLOOD GAS O2 SAT 92.4 % (95-98); ARTERIAL BLOOD GAS PCO2 64 mm/Hg (35-45); ARTERIAL BLOOD GAS PH 7.32 (7.35-7.45); ARTERIAL BLOOD GAS PO2 59 mm/Hg (80-100)
[2018-05-04] MEDS: Albuterol-Ipratrop 3 mg / 0.5 (3 ml) UD INH SCH (19:40)
[2018-05-04] MEDS: (Lantus) Insulin Glargine, Recombinant SC SCH (21:23)
[2018-05-05] MEDS: Albuterol-Ipratrop 3 mg / 0.5 (3 ml) UD INH SCH ×4 (01:27→20:16)
[2018-05-05 06:52] LABS: BASO % 0.3 % (0.0-2.0); EOS # 0.1 K/uL (0.0-0.7); EOS % 1.1 % (0.0-4.0); HEMOGLOBIN 13.1 g/dL (12.0-18.0); LYMPH # 2.6 K/uL (1.0-4.3); MEAN CELL VOLUME 92.3 fL (80.0-94.0); MEAN CORPUSCULAR HEMOGLOBIN 29.3 pg (27.0-31.0); MEAN CORPUSCULAR HGB CONC 31.8 g/dL (33.0-37.0); MEAN PLATELET VOLUME 8.5 fL (7.2-11.7); MONO # 0.6 K/uL (0.0-0.8); MONO % 7.9 % (0.0-10.0); NEUT # 3.9 K/uL (1.8-7.0); NEUT % 54.7 % (50.0-75.0); NRBC % 0.1 % (0.0-2.0); RBC 4.46 Mil/uL (4.40-5.90); RED CELL DISTRIBUTION WIDTH 14.6 % (11.5-14.5); WHITE BLOOD COUNT 7.2 K/uL (4.8-10.8)
--- NOTE | 2018-05-05 07:13 | CP.PCM.PN ---
Subjective - Date & Time of Evaluation Date of Evaluation: 05/05/18 Time of Evaluation: 07:07 - Subjective Subjective: PGY-1 Ale Warren D.O. Medicine progress note for Dr. Dhillon's service: Patient was seen and examined this morning. He states that he is feeling better. He says he is using CPAP at night but is not requiring any supplemental O2 in the morning. He is happy he is going to rehab on Tuesday. He says he has been trying to walk around. He still has a cough. He said he had a BM last night. Objective - Vital Signs/Intake and Output Vital Signs (last 24 hours): Temp Pulse Resp BP Pulse Ox 98.9 F 62 20 110/67 97 05/04/18 23:10 05/05/18 05:11 05/04/18 23:10 05/04/18 23:10 05/04/18 23:10 Intake and Output: 05/05/18 05/05/18 06:59 18:59 Intake Total 480 Output Total 950 Balance -470 - Medications Medications: Current Medications Albuterol/Ipratropium (Duoneb 3 Mg/0.5 Mg (3 Ml) Ud) 3 ml INH RQ6 [facility] Last Admin: 05/05/18 01:27 Dose: 3 ml Dextrose (Dextrose 50% Inj) 0 ml IV STAT PRN; Protocol PRN Reason: Hypoglycemia Protocol Dextrose (Glutose 15) 0 gm PO ONCE PRN; Protocol PRN Reason: Hypoglycemia Protocol Enoxaparin Sodium (Lovenox) 40 mg SC DAILY [facility] Last Admin: 05/04/18 09:10 Dose: 40 mg Fluticasone/Vilanterol (Breo Ellipta 100-25 Mcg Inh) 1 puff INH RQD [facility] Glucagon (Glucagen Diagnostic Kit) 0 mg IM STAT PRN; Protocol PRN Reason: Hypoglycemia Protocol Dextrose (Dextrose 5% In Water 1000 Ml) 1,000 mls @ 0 mls/hr IV .Q0M PRN; Protocol PRN Reason: Hypoglycemia Protocol Insulin Aspart (Novolog) 0 unit SC ACHS [facility]; Protocol Last Admin: 05/04/18 21:23 Dose: Not Given Insulin Glargine (Lantus) 10 unit SC HS [facility] Last Admin: 05/04/18 21:23 Dose: 10 units Methadone HCl (Methadone) 70 mg PO DAILY [facility] Last Admin: 05/04/18 10:33 Dose: 70 mg Methadone HCl (Methadone) 5 mg PO DAILY [facility] Last Admin: 05/04/18 09:44 Dose: 5 mg Polyethylene Glycol (Miralax) 17 gm PO DAILY [facility] Last Admin: 05/04/18 13:00 Dose: Not Given Sennosides (Senokot Tab) 8.6 mg PO DAILY [facility] Last Admin: 05/04/18 17:52 Dose: 8.6 mg - Labs Labs: 05/05/18 06:42 05/04/18 07:14 PT 11.9 SECONDS (9.7-12.2) 05/02/18 19:23 INR 1.1 05/02/18 19:23 APTT 33 SECONDS (21-34) 05/02/18 19:23 - Constitutional Appears: No Acute Distress, Other (obese) - Head Exam Head Exam: ATRAUMATIC, NORMAL INSPECTION - Eye Exam Eye Exam: EOMI, Normal appearance - ENT Exam ENT Exam: Mucous Membranes Moist - Respiratory Exam Respiratory Exam: Decreased Breath Sounds, Rales, NORMAL BREATHING PATTERN. absent: Respiratory Distress - Cardiovascular Exam Cardiovascular Exam: REGULAR RHYTHM, +S1, +S2 - GI/Abdominal Exam GI & Abdominal Exam: Soft. absent: Tenderness Additional comments: obese - Extremities Exam Extremities Exam: Pedal Edema (1+ bilateral). absent: Tenderness - Back Exam Back Exam: NORMAL INSPECTION - Neurological Exam Neurological Exam: Alert, Awake, CN II-XII Intact, Oriented x3 - Psychiatric Exam Psychiatric exam: Normal Affect, Normal Mood - Skin Skin Exam: Dry, Normal Color, Warm Assessment and Plan - Assessment and Plan (Free Text) Assessment: 47 year old male with PMH of asthma, morbid obesity, sleep apnea, opioid use who was sent in to the ED after first visit with PMD for dyspnea and uncontrolled blood sugars. Patient treated for asthma exacerbation. Also found to have poorly controlled diabetes (A1c 11.3) and started on insulin. Plan to go to [facility] on 05/07. Plan: Asthma exacerbation, acute, improving - CXR (on admission 05/02): pulmonary venous congestion versus vascular crowding due to hypoinflation. Central vascular prominence. - Repeat CXR pending - Echo: EF >65% - IgE elevated (296) - Blood Cx no growth >48 hrs - Duoneb Q6H [facility] - Breo Ellipta daily - Cardiology consulted (Bruno)- Continue beta agonist, not recommending Lasix - Pulmonology consulted (Lb)- PFTs as outpatient, cannot rule out underlying COPD given smoking history - PT/OT- [facility] Type 2 diabetes mellitus, newly diagnosed - HgbA1c 11.3 - Lipid panel wnl - Accuchecks ACHS - Hypoglycemia protocol - ISS high - Lasix 10 units SC QHS - ASCVD is 1.8%, no indication for statin, ASA - [employer] referral - clinical nurse educator consulted Obstructive sleep apnea, chronic - Continue CPAP at night - spO2 95% post walk, but he requires frequent stops - ABG: Lactate 1.2, normal A-a gradient - Chronic respiratory acidosis with metabolic compensation. - pH 7.32, pO2 59 (but no respiratory distress and shows no signs of CO2 narcosis) - Pulmonology consulted (Lb)- outpatient sleep study Morbid obesity - Discussed diet and exercise and contribution to chronic diseases, including newly diagnosed diabetes Lower extremity edema, improving - Venous doppler of bilateral lower extremities: no DVT Constipation, improving - Prune juice will be given - Miralax 17 g PO once daily - Sennakot 8.6 mg PO once daily History of opioid use disorder (Percocet)- controlled with methadone - Confirmed with [facility] ([phone]) 73 mg daily dose - Our pharmacy only has 10 and 5 tablets, rounded up to 75 mg PO daily Tobacco use disorder, chronic - Strongly encouraged smoking cessation Dysuria, resolved - UA: negative, Urine Cx: no growth Ppx: No indication for GI ppx at this time VTE: Lovenox 40 sc PT/OT evrory Dispo: Transport to [facility] on Sunday 05/07 at 10 AM after methadone dose.
[2018-05-05] MEDS: (Novolog) Insulin Aspart, Recombinant 100 u/ml 10 ml vial SC SCH ×4 (07:30→22:30)
[2018-05-05 07:31] LABS: ALB/GLOB RATIO 1.2 (1.0-2.1); ALBUMIN 3.9 g/dL (3.5-5.0); ALT/SGPT 25 U/L (21-72); AST/SGOT 38 U/L (17-59); BLOOD UREA NITROGEN 20 mg/dL (9-20); CALCIUM 8.6 mg/dl (8.6-10.4); GFR NON-AFRICAN AMERICAN > 60
[2018-05-05] MEDS: Fluticasone-Vilanterol 100/25mcg Diskus INH SCH (07:40)
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
[2018-05-05] MEDS: Enoxaparin 40 mg Syringe SC SCH (10:47)
[2018-05-05] MEDS: POLYETHYLENE GLYCOL 3350 17 GM/Dose PACKET PO SCH (10:48)
[2018-05-05] MEDS: Methadone 40 mg Tab PO SCH (11:05)
--- NOTE | 2018-05-05 15:10 | RAD ---
Date of service: 05/05/2018 HISTORY: Congestion COMPARISON: 05/02/2018. FINDINGS: LUNGS: The lungs are well inflated. There is mild pulmonary venous congestion. No focal consolidation. PLEURA: No pleural effusions or pneumothorax. CARDIOVASCULAR: The heart is normal in size. No aortic atherosclerotic calcifications present. OSSEOUS STRUCTURES: Within normal limits for the patient's age. VISUALIZED UPPER ABDOMEN: Normal. OTHER FINDINGS: None. IMPRESSION: No active pulmonary disease.
[2018-05-05] MEDS: (Lantus) Insulin Glargine, Recombinant SC SCH (22:56)
--- NOTE | 2018-05-06 01:19 | CP.PCM.PN ---
<Tanya Hong - Last Filed: 05/06/18 05:49> Subjective - Date & Time of Evaluation Date of Evaluation: 05/06/18 Time of Evaluation: 05:47 - Subjective Subjective: Patient examined at bedside, resting comfortable with BiPAP on. No acute overnight events. Patient reports cough is improving. He denies further complaint including chest pain, nausea, diarrhea. Objective - Vital Signs/Intake and Output Vital Signs (last 24 hours): Temp Pulse Resp BP Pulse Ox 98.5 F 63 20 110/68 95 05/05/18 23:14 05/05/18 23:53 05/05/18 23:14 05/05/18 23:14 05/05/18 23:14 Intake and Output: 05/05/18 05/06/18 18:59 06:59 Intake Total 650 Balance 650 - Medications Medications: Current Medications Albuterol/Ipratropium (Duoneb 3 Mg/0.5 Mg (3 Ml) Ud) 3 ml INH RQ6 [facility] Last Admin: 05/05/18 20:16 Dose: Not Given Dextrose (Dextrose 50% Inj) 0 ml IV STAT PRN; Protocol PRN Reason: Hypoglycemia Protocol Dextrose (Glutose 15) 0 gm PO ONCE PRN; Protocol PRN Reason: Hypoglycemia Protocol Enoxaparin Sodium (Lovenox) 40 mg SC DAILY [facility] Last Admin: 05/05/18 10:47 Dose: 40 mg Fluticasone/Vilanterol (Breo Ellipta 100-25 Mcg Inh) 1 puff INH RQD [facility] Last Admin: 05/05/18 07:40 Dose: 1 puff Glucagon (Glucagen Diagnostic Kit) 0 mg IM STAT PRN; Protocol PRN Reason: Hypoglycemia Protocol Insulin Aspart (Novolog) 0 unit SC ACHS [facility]; Protocol Last Admin: 05/05/18 22:30 Dose: Not Given Insulin Glargine (Lantus) 10 unit SC HS [facility] Last Admin: 05/05/18 22:56 Dose: 10 units Methadone HCl (Methadone) 5 mg PO DAILY [facility] Last Admin: 05/05/18 10:47 Dose: 5 mg Methadone HCl (Methadose) 40 mg PO DAILY [facility] Last Admin: 05/05/18 11:05 Dose: 40 mg Methadone HCl (Methadone) 30 mg PO DAILY [facility] Last Admin: 05/05/18 11:06 Dose: 30 mg Polyethylene Glycol (Miralax) 17 gm PO DAILY [facility] Last Admin: 05/05/18 10:48 Dose: Not Given Sennosides (Senokot Tab) 8.6 mg PO DAILY [facility] Last Admin: 05/05/18 10:47 Dose: 8.6 mg - Labs Labs: 05/05/18 06:42 05/05/18 06:42 PT 11.9 SECONDS (9.7-12.2) 05/02/18 19:23 INR 1.1 05/02/18 19:23 APTT 33 SECONDS (21-34) 05/02/18 19:23 - Additional Findings Additional findings: - Constitutional Appears: No Acute Distress, Other (obese) - Head Exam Head Exam: ATRAUMATIC, NORMAL INSPECTION - Eye Exam Eye Exam: EOMI, Normal appearance - ENT Exam ENT Exam: Mucous Membranes Moist - Respiratory Exam Respiratory Exam: Decreased Breath Sounds, Rales, NORMAL BREATHING PATTERN. absent: Respiratory Distress - Cardiovascular Exam Cardiovascular Exam: REGULAR RHYTHM, +S1, +S2 - GI/Abdominal Exam GI & Abdominal Exam: Soft. absent: Tenderness Additional comments: obese abdomen - Extremities Exam Extremities Exam: Pedal Edema (1+ bilateral). absent: Tenderness - Back Exam Back Exam: NORMAL INSPECTION - Neurological Exam Neurological Exam: Alert, Awake, CN II-XII Intact, Oriented x3 - Psychiatric Exam Psychiatric exam: Normal Affect, Normal Mood - Skin Skin Exam: Dry, Normal Color, Warm Assessment and Plan (1) Dyspnea Assessment & Plan: - CXR (on admission 05/02): pulmonary venous congestion versus vascular crowding due to hypoinflation. Central vascular prominence. - CXR(05/05): no active pulmonary disease - Echo(312): WNL, EF >65% - IgE elevated (296) - Blood Cx no growth >48 hrs - Duoneb Q6H [facility] - Breo Ellipta daily - Cardiology consulted (Bruno)- Continue beta agonist, not recommending Lasix - Pulmonology consulted (Lb)- PFTs as outpatient, cannot rule out underlying COPD given smoking history - PT/OT- rec [facility] Status: Acute (2) DM2 (diabetes mellitus, type 2) Assessment & Plan: - HgbA1c 11.3 - Accuchecks ACHS - Hypoglycemia protocol - ISS high - Lasix 10 units SC QHS - ASCVD is 1.8%, no indication for statin, ASA - Laundry Housekeeper referral - prosthodontist/educator consulted Status: Acute (3) Obstructive sleep apnea Assessment & Plan: - Continue CPAP at night - spO2 95% post walk, but he requires frequent stops - ABG: Lactate 1.2, normal A-a gradient - Chronic respiratory acidosis with metabolic compensation. - pH 7.32, pO2 59 (but no respiratory distress and shows no signs of CO2 narcosis) - Pulmonology consulted (Lb)- recommends outpatient sleep study Status: Chronic (4) Narcotic dependence Assessment & Plan: - Confirmed with [facility] ([phone]) 73 mg daily dose - Methadone 75 mg PO daily Status: Chronic - Assessment and Plan (Free Text) Assessment: Ppx: No indication for GI ppx at this time VTE: Lovenox 40 sc PT/OT eval Dispo: Transport to [facility] on Sunday 05/07 at 10 AM after methadone dose. <Domonique Dhillon V - Last Filed: 05/06/18 11:46> Objective - Vital Signs/Intake and Output Vital Signs (last 24 hours): Temp Pulse Resp BP Pulse Ox 97.9 F 58 L 20 115/62 96 05/06/18 07:00 05/06/18 08:06 05/06/18 07:00 05/06/18 07:00 05/06/18 07:00 - Medications Medications: Current Medications Albuterol/Ipratropium (Duoneb 3 Mg/0.5 Mg (3 Ml) Ud) 3 ml INH RQ6 [facility] Last Admin: 05/06/18 10:11 Dose: Not Given Dextrose (Dextrose 50% Inj) 0 ml IV STAT PRN; Protocol PRN Reason: Hypoglycemia Protocol Dextrose (Glutose 15) 0 gm PO ONCE PRN; Protocol PRN Reason: Hypoglycemia Protocol Enoxaparin Sodium (Lovenox) 40 mg SC DAILY [facility] Last Admin: 05/06/18 10:30 Dose: 40 mg Fluticasone/Vilanterol (Breo Ellipta 100-25 Mcg Inh) 1 puff INH RQD [facility] Last Admin: 05/06/18 10:11 Dose: Not Given Glucagon (Glucagen Diagnostic Kit) 0 mg IM STAT PRN; Protocol PRN Reason: Hypoglycemia Protocol Insulin Aspart (Novolog) 0 unit SC [facility]; Protocol Last Admin: 05/06/18 08:57 Dose: Not Given Insulin Glargine (Lantus) 10 unit SC HS [facility] Last Admin: 05/05/18 22:56 Dose: 10 units Methadone HCl (Methadone) 5 mg PO DAILY [facility] Last Admin: 05/06/18 10:29 Dose: 5 mg Methadone HCl (Methadose) 40 mg PO DAILY [facility] Last Admin: 05/06/18 10:28 Dose: 40 mg Methadone HCl (Methadone) 30 mg PO DAILY [facility] Last Admin: 05/06/18 10:29 Dose: 30 mg Polyethylene Glycol (Miralax) 17 gm PO DAILY [facility] Last Admin: 05/06/18 10:28 Dose: 17 gm Sennosides (Senokot Tab) 8.6 mg PO DAILY [facility] Last Admin: 05/06/18 10:27 Dose: 8.6 mg - Labs Labs: 05/06/18 07:40 05/06/18 07:40 PT 11.9 SECONDS (9.7-12.2) 05/02/18 19:23 INR 1.1 05/02/18 19:23 APTT 33 SECONDS (21-34) 05/02/18 19:23 Attending/Attestation - Attestation I have personally seen and examined this patient.: Yes I have fully participated in the care of the patient.: Yes I have reviewed all pertinent clinical information, including history, physical exam and plan: Yes Notes (Text): Assessment and Plan (1) Dyspnea Asthma Exacerbation Assessment & Plan: * Dr Asher (pulm) on board-->help appreciated * Consider PFTs * Continue Brio Ellipta 200 mcg * IgE level * Nebulizer treatment * Follow-up ABG to rule out obesity hypoventilation syndrome * Sleep study as outpatient * patient is using bipap at night * Dr. Carr (cardiology) on board-->help appreciated * outpatient stress test is recommended * CXR (on admission 05/02): pulmonary venous congestion versus vascular crowding due to hypoinflation. Central vascular prominence. * CXR(05/05): no active pulmonary disease * Echocardiogram (05/03/18): left ventricular function is normal, left ventricular ejection fraction is within normal range. No regional wall motion abnormalities noted. * IgE elevated (296) * Blood culture (05/02/18): no growth after 3 days X3 * Urine culture: no growth * Duonebs 3ml inh RQ6H * Breo Ellipta 200-25 inhaled q daily * Add singulair 10mg POqHS given elevated IgE * Add nictone patch Status: Acute (2) DM2 (diabetes mellitus, type 2) Assessment & Plan: * HgbA1c 11.3 * Accuchecks ACHS * Hypoglycemia protocol * ISS high * Lasix 10 units SC QHS * ASCVD is 1.8%, no indication for statin, ASA * Laundry Housekeeper referral * prosthodontist/educator consulted Status: Acute (3) Obstructive sleep apnea Assessment & Plan: * Continue CPAP at night * spO2 95% post walk, but he requires frequent stops * ABG: Lactate 1.2, normal A-a gradient * Chronic respiratory acidosis with metabolic compensation. - pH 7.32, pO2 59 (but no respiratory distress and shows no signs of CO2 narcosis) - Pulmonology consulted (Lb)- recommends outpatient sleep study Status: Chronic (4) Narcotic dependence Assessment & Plan: * [facility] ([phone]) 73 mg daily dose * Methadone 75 mg PO daily Status: Chronic (5) Morbid obesity Assessment & Plan: * Patient is aware he is recommended for diet and exercise which will help his comorbid conditions (6) Prophylactic measure Assessment & Plan: * lovenox 40mg subq daily - Assessment and Plan (Free Text) Assessment: Ppx: No indication for GI ppx at this time VTE: Lovenox 40 sc PT/OT eval Dispo: Transport to [facility] on Sunday 05/07 at 10 AM after methadone dose. d/c telemetry today
[2018-05-06] MEDS: Albuterol-Ipratrop 3 mg / 0.5 (3 ml) UD INH SCH ×3 (01:21→20:03)
[2018-05-06 07:50] LABS: BASO % 0.3 % (0.0-2.0); EOS # 0.1 K/uL (0.0-0.7); EOS % 1.5 % (0.0-4.0); HEMOGLOBIN 12.9 g/dL (12.0-18.0); LYMPH # 1.7 K/uL (1.0-4.3); LYMPH % 21.6 % (20.0-40.0); MEAN CELL VOLUME 91.5 fL (80.0-94.0); MEAN CORPUSCULAR HEMOGLOBIN 29.5 pg (27.0-31.0); MEAN CORPUSCULAR HGB CONC 32.3 g/dL (33.0-37.0); MEAN PLATELET VOLUME 8.2 fL (7.2-11.7); MONO # 0.7 K/uL (0.0-0.8); MONO % 8.3 % (0.0-10.0); NEUT # 5.4 K/uL (1.8-7.0); NEUT % 68.3 % (50.0-75.0); NRBC % 0.1 % (0.0-2.0); RBC 4.35 Mil/uL (4.40-5.90); RED CELL DISTRIBUTION WIDTH 14.1 % (11.5-14.5); WHITE BLOOD COUNT 7.9 K/uL (4.8-10.8)
[2018-05-06 08:15] LABS: ALB/GLOB RATIO 1.1 (1.0-2.1); ALBUMIN 3.6 g/dL (3.5-5.0); ALT/SGPT 19 U/L (21-72); AST/SGOT 34 U/L (17-59); BLOOD UREA NITROGEN 16 mg/dL (9-20); CALCIUM 8.7 mg/dl (8.6-10.4); GFR NON-AFRICAN AMERICAN > 60
[2018-05-06] MEDS: (Novolog) Insulin Aspart, Recombinant 100 u/ml 10 ml vial SC SCH ×4 (08:57→21:23)
[2018-05-06] MEDS: Fluticasone-Vilanterol 100/25mcg Diskus INH SCH (10:11)
[2018-05-06] MEDS: Methadone 40 mg Tab PO SCH (10:28)
[2018-05-06] MEDS: POLYETHYLENE GLYCOL 3350 17 GM/Dose PACKET PO SCH (10:28)
[2018-05-06] MEDS: Enoxaparin 40 mg Syringe SC SCH (10:30)
--- NOTE | 2018-05-06 19:49 | CP.PCM.PN ---
Subjective - Date & Time of Evaluation Date of Evaluation: 05/06/18 Time of Evaluation: 17:00 - Subjective Subjective: Patient seen and examined Breathing and cough much improved Nocturnal snoring and excessive sleepiness during the daytime Objective - Vital Signs/Intake and Output Vital Signs (last 24 hours): Temp Pulse Resp BP Pulse Ox 98.6 F 68 20 105/67 93 L 05/06/18 15:00 05/06/18 15:00 05/06/18 15:00 05/06/18 15:00 05/06/18 15:00 - Medications Medications: Current Medications Albuterol/Ipratropium (Duoneb 3 Mg/0.5 Mg (3 Ml) Ud) 3 ml INH RQ6 [facility] Last Admin: 05/06/18 10:11 Dose: Not Given Dextrose (Dextrose 50% Inj) 0 ml IV STAT PRN; Protocol PRN Reason: Hypoglycemia Protocol Dextrose (Glutose 15) 0 gm PO ONCE PRN; Protocol PRN Reason: Hypoglycemia Protocol Enoxaparin Sodium (Lovenox) 40 mg SC DAILY [facility] Last Admin: 05/06/18 10:30 Dose: 40 mg Fluticasone/Vilanterol (Breo Ellipta 200-25 Mcg Inh) 1 puff INH RQD [facility] Glucagon (Glucagen Diagnostic Kit) 0 mg IM STAT PRN; Protocol PRN Reason: Hypoglycemia Protocol Insulin Aspart (Novolog) 0 unit SC [facility]; Protocol Last Admin: 05/06/18 17:54 Dose: 2 units Insulin Glargine (Lantus) 10 unit SC [facility] Last Admin: 05/05/18 22:56 Dose: 10 units Methadone HCl (Methadone) 5 mg PO DAILY [facility] Last Admin: 05/06/18 10:29 Dose: 5 mg Methadone HCl (Methadose) 40 mg PO DAILY [facility] Last Admin: 05/06/18 10:28 Dose: 40 mg Methadone HCl (Methadone) 30 mg PO DAILY [facility] Last Admin: 05/06/18 10:29 Dose: 30 mg Montelukast Sodium (Singulair) 10 mg PO HS [facility] Nicotine (Nicoderm Cq) 1 patch TD DAILY [facility] Last Admin: 05/06/18 13:28 Dose: 1 patch Polyethylene Glycol (Miralax) 17 gm PO DAILY [facility] Last Admin: 05/06/18 10:28 Dose: 17 gm Sennosides (Senokot Tab) 8.6 mg PO DAILY [facility] Last Admin: 05/06/18 10:27 Dose: 8.6 mg - Labs Labs: 05/06/18 07:40 05/06/18 07:40 PT 11.9 SECONDS (9.7-12.2) 05/02/18 19:23 INR 1.1 05/02/18 19:23 APTT 33 SECONDS (21-34) 05/02/18 19:23 - Head Exam Head Exam: ATRAUMATIC, NORMOCEPHALIC - ENT Exam ENT Exam: Mucous Membranes Moist - Respiratory Exam Respiratory Exam: Clear to Ausculation Bilateral - Cardiovascular Exam Cardiovascular Exam: REGULAR RHYTHM - GI/Abdominal Exam GI & Abdominal Exam: Soft, Normal Bowel Sounds - Extremities Exam Extremities Exam: Normal Inspection - Neurological Exam Neurological Exam: Alert Assessment and Plan (1) Asthma exacerbation Assessment & Plan: Continue nebulizer treatment BiPAP at night Sleep study as outpatient IgE level Status: Acute
[2018-05-06] MEDS: Fluticasone-Vilanterol 200/25mcg Diskus INH SCH (20:03)
[2018-05-06] MEDS: (Lantus) Insulin Glargine, Recombinant SC SCH (21:23)
[2018-05-07] MEDS: Albuterol-Ipratrop 3 mg / 0.5 (3 ml) UD INH SCH ×2 (01:48→07:53)
[2018-05-07] MEDS: (Novolog) Insulin Aspart, Recombinant 100 u/ml 10 ml vial SC SCH (07:28)
[2018-05-07] MEDS: Fluticasone-Vilanterol 200/25mcg Diskus INH SCH (07:53)
[2018-05-07 07:56] LABS: BASO % 0.3 % (0.0-2.0); EOS # 0.1 K/uL (0.0-0.7); HEMOGLOBIN 12.8 g/dL (12.0-18.0); LYMPH # 1.9 K/uL (1.0-4.3); LYMPH % 27.1 % (20.0-40.0); MEAN CORPUSCULAR HEMOGLOBIN 29.9 pg (27.0-31.0); MEAN CORPUSCULAR HGB CONC 32.5 g/dL (33.0-37.0); MEAN PLATELET VOLUME 8.3 fL (7.2-11.7); MONO # 0.5 K/uL (0.0-0.8); MONO % 7.1 % (0.0-10.0); NEUT # 4.4 K/uL (1.8-7.0); NEUT % 63.5 % (50.0-75.0); RBC 4.3 Mil/uL (4.40-5.90); RED CELL DISTRIBUTION WIDTH 14.1 % (11.5-14.5)
[2018-05-07 08:15] LABS: ALB/GLOB RATIO 1.1 (1.0-2.1); ALBUMIN 3.7 g/dL (3.5-5.0); ALT/SGPT 22 U/L (21-72); AST/SGOT 43 U/L (17-59); BLOOD UREA NITROGEN 16 mg/dL (9-20); CALCIUM 8.8 mg/dl (8.6-10.4); GFR NON-AFRICAN AMERICAN > 60
[2018-05-07 08:20] VITALS: BP 138/79; PULSE 77; RESP 18; TEMP 98.8; O2SAT 99
[2018-05-07] MEDS: Enoxaparin 40 mg Syringe SC SCH (09:07)
[2018-05-07] MEDS: Methadone 40 mg Tab PO SCH (09:08)
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
== END 2018-05-07 10:35 | DRG 96 ==
LOC: C.ER 17:15 → C.6T 20:16
PROVIDERS: ADMIT Hospitalist; ATTEND Hospitalist
DX: J45.901 Unspecified asthma with (acute) exacerbation (principal); E11.65 Type 2 diabetes mellitus with hyperglycemia; E87.2 Acidosis; F11.20 Opioid dependence, uncomplicated; J44.9 Chronic obstructive pulmonary disease, unspecified; G47.33 Obstructive sleep apnea (adult) (pediatric); I10 Essential (primary) hypertension; F17.210 Nicotine dependence, cigarettes, uncomplicated; M06.9 Rheumatoid arthritis, unspecified; G89.29 Other chronic pain; M25.552 Pain in left hip; E66.01 Morbid (severe) obesity due to excess calories; Z79.899 Other long term (current) drug therapy; Z90.49 Acquired absence of other specified parts of digestive tract; Z91.013 Allergy to seafood